=== PATIENT | female | born 1990 | race Caucasian/White ===

== ENCOUNTER → 2017-08-29 | Outpatient (CLI) | payer OTHER | END | disposition home or self-care (01) | LOC: ECHO 09:58 | DX: I08.2 Rheumatic disorders of both aortic and tricuspid valves (principal) | CPT/HCPCS: 93306 ==

== ENCOUNTER 2017-11-04 10:56 | Day surgery (SDC) | payer OTHER ==
[~2017-11-04 10:56] MED LIST: IV RINGERS,LACTATED 1000ML 1,000 ML IV; LIDOCAINE 1% PF 2 ML VIAL. ID; MORPHINE SULFATE 2 MG/ML DISP.SYRIN. IV; ONDANSETRON PF 4 MG/2 ML VIAL. IV; PROCHLORPERAZINE 10 MG/2 ML VIAL. IV; fentaNYL PF VIAL 100 MCG/2 ML VIAL IV
[2017-11-04] MEDS ORDERED: IODIXANOL 320 MG/ML 100 ML VIAL. (10:58)
[2017-11-04] MEDS ORDERED: LIDOCAINE 1% PF 30 ML VIAL. ×2 (10:58→13:04)
[2017-11-04 11:25] LABS: HEMATOCRIT 36.6 % (36.0-47.0); MEAN CORPUSCULAR HEMOGLOBIN 25 pg (25-35); MEAN CORPUSCULAR HGB CONC 33 g/dL (31-37); MEAN CORPUSCULAR VOLUME 76 fL (79-100); PLATELET COUNT 300 x10^3/uL (140-400); RED BLOOD COUNT 4.85 x10^6/uL (3.50-5.40); RED CELL DISTRIBUTION WIDTH 18.3 % (11.5-14.5); WHITE BLOOD COUNT 5.3 x10^3/uL (4.0-11.0)
[2017-11-04 11:29] LABS: ANION GAP 10 (6-14); BLOOD UREA NITROGEN 14 mg/dL (7-20); CALCIUM 9.1 mg/dL (8.5-10.1); CARBON DIOXIDE 27 mmol/L (21-32); CHLORIDE 102 mmol/L (98-107); GFR 66.5; GLUCOSE 93 mg/dL (70-99); POTASSIUM 4.4 mmol/L (3.5-5.1); SODIUM 139 mmol/L (136-145)
[2017-11-04 11:41] LABS: INR 1.1 (0.8-1.1); PARTIAL THROMBOPLASTIN TIME 30 SEC (24-38); PROTHROMBIN TIME PATIENT 13.2 SEC (11.7-14.0)
[2017-11-04] MEDS ORDERED: PROPOFOL 0 ML IV ×2 (11:51)
[2017-11-04] MEDS ORDERED: PROPOFOL 20 ML IV (11:51)
[2017-11-04 12:07] LABS: NEG OBC SER NEG; POS OBC SER POS; PREG TEST PT QUAL NEGATIVE (NEG)
[2017-11-04] MEDS: IODIXANOL 320 MG/ML 100 ML VIAL. IART (12:30)
[2017-11-04] MEDS: fentaNYL PF VIAL 100 MCG/2 ML VIAL IV ×3 (12:30→14:24)
[2017-11-04] MEDS: LIDOCAINE 1% PF 2 ML VIAL. INJ (12:30)
[2017-11-04] MEDS: MIDAZOLAM HCL/PF 2 MG/2 ML VIAL. IV (12:30)
[2017-11-04] MEDS ORDERED: fentaNYL PF VIAL 100 MCG/2 ML VIAL (12:32)
[2017-11-04] MEDS ORDERED: MIDAZOLAM HCL/PF 2 MG/2 ML VIAL. (12:32)
[2017-11-04] MEDS ORDERED: CONTRAST GIVEN. MC (12:45)
[2017-11-04] MEDS ORDERED: IV RINGERS,LACTATED 1000ML 1,000 ML IV (13:29)
[2017-11-04] MEDS ORDERED: LIDOCAINE 1% PF 2 ML VIAL. ID (13:30)
[2017-11-04] MEDS ORDERED: MORPHINE SULFATE 2 MG/ML DISP.SYRIN. IV (13:30)
[2017-11-04] MEDS ORDERED: ONDANSETRON PF 4 MG/2 ML VIAL. IV (13:30)
[2017-11-04] MEDS ORDERED: PROCHLORPERAZINE 10 MG/2 ML VIAL. IV (13:30)
[2017-11-04] MEDS ORDERED: fentaNYL PF VIAL 100 MCG/2 ML VIAL IV (13:30)
== END 2017-11-04 16:15 | disposition home or self-care (01) ==
LOC: SURG 10:56
DX: I34.0 Nonrheumatic mitral (valve) insufficiency (principal); I42.9 Cardiomyopathy, unspecified; Z88.1 Allergy status to other antibiotic agents; Z91.040 Latex allergy status; I10 Essential (primary) hypertension; J45.909 Unspecified asthma, uncomplicated; F90.9 Attention-deficit hyperactivity disorder, unspecified type; F43.10 Post-traumatic stress disorder, unspecified; F31.9 Bipolar disorder, unspecified; F41.9 Anxiety disorder, unspecified; Z72.89 Other problems related to lifestyle; F17.200 Nicotine dependence, unspecified, uncomplicated; Z79.899 Other long term (current) drug therapy; Z79.01 Long term (current) use of anticoagulants
CPT/HCPCS: 36415; 76376; 80048; 84703; 85027; 85610; 85730; 93312; 93320; 93325; 93460; 99152; 99153; C1769; C1771; C1773; C1892; G0269; J1644; J2250; J2704; J3010

== ENCOUNTER 2017-11-05 20:28 | Observation (INO) | payer OTHER ==
[2017-11-05] MEDS ORDERED: MORPHINE SULFATE 4 MG/ML DISP.SYRIN. IV (21:15)
[2017-11-05] MEDS: IV NORMAL SALINE 1000ML BAG 1,000 ML IV (21:48)
[2017-11-05] MEDS: LABETALOL HCL 100 MG TABLET. PO (21:49)
[2017-11-05] MEDS: MORPHINE SULFATE 2 MG/ML DISP.SYRIN. IV (21:49)
[2017-11-05 22:20] LABS: ADD MAN DIFF? NO
[2017-11-05 22:39] LABS: ALBUMIN 3.8 g/dL (3.4-5.0); ALBUMIN/GLOBULIN RATIO 0.9 (1.0-1.7); ALK PHOS 110 U/L (46-116); ALT (SGPT) 140 U/L (14-59); ANION GAP 7 (6-14); AST (SGOT) 62 U/L (15-37); BLOOD UREA NITROGEN 13 mg/dL (7-20); BUN/CREATININE RATIO 13 (6-20); CARBON DIOXIDE 27 mmol/L (21-32); CHLORIDE 102 mmol/L (98-107); GFR 66.5; GLUCOSE 93 mg/dL (70-99); POTASSIUM 4.5 mmol/L (3.5-5.1); SODIUM 136 mmol/L (136-145); TOTAL BILIRUBIN 0.9 mg/dL (0.2-1.0); TOTAL PROTEIN 7.9 g/dL (6.4-8.2)
[2017-11-05 23:09] LABS: BASO % 0 % (0-3); EOS # 0.2 x10^3/uL (0.0-0.7); EOS % 2 % (0-3); HEMATOCRIT 35.2 % (36.0-47.0); HEMOGLOBIN 11.4 g/dL (12.0-15.5); LYMPH # 1.7 x10^3/uL (1.0-4.8); LYMPH % 20 % (24-48); MEAN CORPUSCULAR HEMOGLOBIN 25 pg (25-35); MEAN CORPUSCULAR HGB CONC 32 g/dL (31-37); MEAN CORPUSCULAR VOLUME 77 fL (79-100); MONO # 0.6 x10^3/uL (0.0-1.1); MONO % 7 % (0-9); NEUT # 6.3 x10^3uL (1.8-7.7); NEUT % 71 % (31-73); PLATELET COUNT 294 x10^3/uL (140-400); RED BLOOD COUNT 4.58 x10^6/uL (3.50-5.40); RED CELL DISTRIBUTION WIDTH 18.4 % (11.5-14.5); WHITE BLOOD COUNT 8.8 x10^3/uL (4.0-11.0)
[2017-11-06 07:32] LABS: ADD MAN DIFF? NO
[2017-11-06 07:34] LABS: BASO % 1 % (0-3); EOS # 0.2 x10^3/uL (0.0-0.7); EOS % 3 % (0-3); HEMATOCRIT 32.2 % (36.0-47.0); HEMOGLOBIN 10.7 g/dL (12.0-15.5); LYMPH # 2.2 x10^3/uL (1.0-4.8); LYMPH % 29 % (24-48); MEAN CORPUSCULAR HEMOGLOBIN 25 pg (25-35); MEAN CORPUSCULAR HGB CONC 33 g/dL (31-37); MEAN CORPUSCULAR VOLUME 76 fL (79-100); MONO # 0.6 x10^3/uL (0.0-1.1); MONO % 8 % (0-9); NEUT # 4.6 x10^3uL (1.8-7.7); NEUT % 60 % (31-73); PLATELET COUNT 279 x10^3/uL (140-400); RED BLOOD COUNT 4.26 x10^6/uL (3.50-5.40); RED CELL DISTRIBUTION WIDTH 18.3 % (11.5-14.5); WHITE BLOOD COUNT 7.7 x10^3/uL (4.0-11.0)
[2017-11-06] MEDS: MORPHINE SULFATE 2 MG/ML DISP.SYRIN. IV (07:43)
[2017-11-06] MEDS: ONDANSETRON PF 4 MG/2 ML VIAL. IV (07:43)
[2017-11-06 07:44] LABS: ANION GAP 9 (6-14); BLOOD UREA NITROGEN 13 mg/dL (7-20); CALCIUM 8.8 mg/dL (8.5-10.1); CARBON DIOXIDE 24 mmol/L (21-32); CHLORIDE 103 mmol/L (98-107); GFR 66.5; GLUCOSE 91 mg/dL (70-99); POTASSIUM 4.4 mmol/L (3.5-5.1); SODIUM 136 mmol/L (136-145)
[2017-11-06] MEDS: IV NORMAL SALINE 1000ML BAG 1,000 ML IV (08:39)
[2017-11-06] MEDS: LABETALOL HCL 100 MG TABLET. PO ×2 (08:39→20:28)
[2017-11-06 13:04] LABS: HEMOGLOBIN 10.1 g/dL (12.0-15.5)
[2017-11-06] MEDS: ACETAMINOPHEN 325 MG TABLET. PO (22:32)
[2017-11-07 05:02] LABS: ADD MAN DIFF? NO
[2017-11-07 05:09] LABS: BASO % 1 % (0-3); EOS # 0.2 x10^3/uL (0.0-0.7); EOS % 4 % (0-3); HEMATOCRIT 30.7 % (36.0-47.0); HEMOGLOBIN 10.3 g/dL (12.0-15.5); LYMPH # 2.1 x10^3/uL (1.0-4.8); LYMPH % 35 % (24-48); MEAN CORPUSCULAR HEMOGLOBIN 26 pg (25-35); MEAN CORPUSCULAR HGB CONC 34 g/dL (31-37); MEAN CORPUSCULAR VOLUME 76 fL (79-100); MONO # 0.5 x10^3/uL (0.0-1.1); MONO % 9 % (0-9); NEUT # 3.1 x10^3uL (1.8-7.7); NEUT % 52 % (31-73); PLATELET COUNT 246 x10^3/uL (140-400); RED BLOOD COUNT 4.04 x10^6/uL (3.50-5.40); RED CELL DISTRIBUTION WIDTH 18.3 % (11.5-14.5)
[2017-11-07 05:26] LABS: ANION GAP 9 (6-14); BLOOD UREA NITROGEN 9 mg/dL (7-20); CALCIUM 8.6 mg/dL (8.5-10.1); CARBON DIOXIDE 25 mmol/L (21-32); CHLORIDE 104 mmol/L (98-107); CREATININE 0.9 mg/dL (0.6-1.0); GFR 75.1; GLUCOSE 93 mg/dL (70-99); SODIUM 138 mmol/L (136-145)
[2017-11-07] MEDS: LABETALOL HCL 100 MG TABLET. PO (09:00)
== END 2017-11-07 15:14 | disposition home or self-care (01) ==
LOC: 2 NORTH 20:28
DX: K66.1 Hemoperitoneum (principal); F32.9 Major depressive disorder, single episode, unspecified; F90.9 Attention-deficit hyperactivity disorder, unspecified type; F41.9 Anxiety disorder, unspecified; D62 Acute posthemorrhagic anemia; E24.9 Cushing's syndrome, unspecified; F17.210 Nicotine dependence, cigarettes, uncomplicated; I10 Essential (primary) hypertension; O90.3 Peripartum cardiomyopathy; Z83.3 Family history of diabetes mellitus; Z86.2 Personal history of diseases of the blood and blood-forming organs and certain disorders involving the immune mechanism
CPT/HCPCS: 36415; 74176; 80048; 80053; 85018; 85025; 93005; 93926; 96361; 96374; 96375; 96376; G0378; G0379; J2270; J2405; J7030

== ENCOUNTER 2017-11-10 18:15 | Emergency (ER) | payer OTHER ==
[~2017-11-10] VITALS: Ht 170.2 cm; Wt 88.0 kg
[~2017-11-10 18:15] MED LIST changes: -IV RINGERS,LACTATED 1000ML 1,000 ML IV; +LABE100T5 PO; -LIDOCAINE 1% PF 2 ML VIAL. ID; -MORPHINE SULFATE 2 MG/ML DISP.SYRIN. IV; -ONDANSETRON PF 4 MG/2 ML VIAL. IV; +PROAIR HFA8.5 GM INH; -PROCHLORPERAZINE 10 MG/2 ML VIAL. IV; -fentaNYL PF VIAL 100 MCG/2 ML VIAL IV
[2017-11-10] MEDS ORDERED: IV NORMAL SALINE 1000ML BAG 1,000 ML IV SCH (19:16)
[2017-11-10] MEDS ORDERED: fentaNYL PF VIAL 100 MCG/2 ML VIAL IV ONE (19:30)
[2017-11-10] MEDS ORDERED: ONDANSETRON PF 4 MG/2 ML VIAL. IV ONE (19:30)
[2017-11-10 19:33] LABS: BILIRUBIN,URINE NEGATIVE (NEG); CLARITY,URINE CLEAR; COLOR,URINE YELLOW; NITRITE,URINE NEGATIVE (NEG); PROTEIN,URINE NEGATIVE (NEG-TRACE)
[2017-11-10 19:40] LABS: BACTERIA,URINE MANY /HPF (0-FEW); RBC,URINE 0 /HPF (0-2); SQUAMOUS EPITHELIAL CELL,UR MANY /LPF
[2017-11-10 19:42] LABS: BASO # 0.1 x10^3/uL (0.0-0.2); BASO % 1 % (0-3); EOS # 0.1 x10^3/uL (0.0-0.7); EOS % 1 % (0-3); HEMATOCRIT 35.1 % (36.0-47.0); LYMPH # 2.1 x10^3/uL (1.0-4.8); LYMPH % 19 % (24-48); MEAN CORPUSCULAR HEMOGLOBIN 26 pg (25-35); MEAN CORPUSCULAR HGB CONC 34 g/dL (31-37); MEAN CORPUSCULAR VOLUME 75 fL (79-100); MONO # 0.8 x10^3/uL (0.0-1.1); MONO % 7 % (0-9); NEUT # 7.8 x10^3uL (1.8-7.7); NEUT % 72 % (31-73); PLATELET COUNT 351 x10^3/uL (140-400); RED BLOOD COUNT 4.67 x10^6/uL (3.50-5.40); RED CELL DISTRIBUTION WIDTH 18.6 % (11.5-14.5); WHITE BLOOD COUNT 10.8 x10^3/uL (4.0-11.0)
[2017-11-10 19:55] LABS: CALCIUM 9.5 mg/dL (8.5-10.1); CREATININE 1.1 mg/dL (0.6-1.0); GFR 59.6
[2017-11-10 19:59] LABS: ALBUMIN/GLOBULIN RATIO 0.9 (1.0-1.7); TOTAL BILIRUBIN 1.2 mg/dL (0.2-1.0); TOTAL PROTEIN 8.4 g/dL (6.4-8.2)
[2017-11-10] MEDS ORDERED: CONTRAST GIVEN. MC PRN (20:45)
[2017-11-10] MEDS ORDERED: IOHEXOL 300 MG/ML 100ML VIAL. IV ONE (20:45)
--- NOTE | 2017-11-10 22:05 | RAD ---
CT abdomen and pelvis with contrast: Reason for examination: Right lower quadrant abdominal pain and groin pain. History of catheterization. Comparison is made to previous study dated 11/07/2017. Helical images were obtained through the abdomen and pelvis with intravenous administration of 60 cc Omnipaque 300. Reconstruction was performed in sagittal and coronal planes. Exposure: One or more of the following individualized dose reduction techniques were utilized for this examination: 1. Automated exposure control 2. Adjustment of the mA and/or kV according to patient size 3. Use of iterative reconstruction technique. The lung bases are clear. The heart size is normal with no pericardial effusion. No focal abnormality seen at the liver, spleen, gallbladder, pancreas or adrenal glands. The kidneys show no renal masses, renal calculi, hydronephrosis or evidence of obstructive uropathy. The abdominal aorta and inferior vena cava show no acute abnormalities. There is however continued presence of soft tissue edema and fluid present extending from the right groin into the right lateral pelvis along the course of the external iliac artery and common femoral artery this is probably slightly more prominent than on previous examination and would be consistent with probable hematoma. The intestinal tract shows no abnormally dilated loops of bowel or thickened bowel vergara. There is no evidence of diverticulosis or diverticulitis. No abnormality seen at the bladder. No uterine or adnexal masses are evident. IMPRESSION: Soft tissue edema and fluid extending from the right groin around the common femoral artery into the lateral right pelvis around the external iliac artery. Appearance is consistent with hematoma. This is slightly more prominent than on previous examination. No other focal abnormality seen in the abdomen or pelvis. Electronically signed by: Sherron Roche MD (11/10/2017 10:01 PM) [facility]
--- NOTE | 2017-11-10 22:10 | RAD ---
Ultrasound arterial study lower extremity right: Reason for examination: Right groin pain status post catheterization. Severe groin pain radiating down right leg post cardiac catheterization. The right lower extremity arterial system was evaluated from the common femoral artery distally to the popliteal artery and the right common femoral vein and greater saphenous vein were evaluated with grayscale imaging, color-flow imaging and spectral analysis. The right common femoral vein and greater saphenous vein show normal blood flow and normal compression. No venous thrombosis is seen. The right lower extremity arterial system showed triphasic waveform from the common femoral artery to the popliteal artery. No stenosis or occlusion is seen. No pseudoaneurysm is seen. Normal appearing lymph nodes are seen at the right groin. There is right groin edema present. IMPRESSION: No thrombus in the common femoral or greater saphenous veins. Normal triphasic waveform from the right common femoral artery to the popliteal artery. No evidence of pseudoaneurysm. Edema in the right groin. Electronically signed by: Sherron Roche MD (11/10/2017 10:06 PM) [facility]
--- NOTE | 2017-11-10 22:49 | PHYS DOC ---
Past Medical History Past Medical History: Anxiety, Depression, Other Additional Past Medical Histor: CARDIOMYOPATHY, PTSD, ADHD Past Surgical History: Other Additional Past Surgical Histo: CARDIAC CATH, LEEP, D&C Alcohol Use: Rarely Drug Use: None Adult General Chief Complaint Chief Complaint: ABDOMINAL PAIN HPI HPI Patient is a 26-year-old female who presents with complaint of right lower abdominal/groin pain. Patient had been admitted a week ago for cardiac catheterization and after discharge, she had developed pain and significant bruising to the groin and so had been readmitted into the hospital the next day for a hematoma in her groin. Patient states that she was discharged home on and pain has been fairly well controlled at home but today she again developed pain in her groin and the pain extends up into her right lower abdomen. She indicates that she has had poor appetite over the last few days. She denies any fever. She states that she has had some nausea and vomiting. She denies diarrhea. She rates her pain at a 7 out of 10 currently. Review of Systems Review of Systems Constitutional: Denies fever or chills [] Respiratory: Denies cough or shortness of breath [] Cardiovascular: Denies chest pain[] GI: Complains of right lower abdominal pain and groin pain as well as nausea and vomiting[] : Denies dysuria or hematuria [] Musculoskeletal: Denies back pain or joint pain [] Integument: Complains of bruising to the right groin[] All other systems were reviewed and found to be within normal limits, except as documented in this note. Current Medications Current Medications Current Medications Medications (Trade) Dose Ordered Sig/Casei Start Time Stop Time Status Last Admin Dose Admin Fentanyl Citrate (Fentanyl 2ml Vial) 50 mcg 1X ONCE 11/10/17 19:30 11/10/17 19:31 DC 11/10/17 19:50 50 MCG Info (CONTRAST GIVEN -- Rx MONITORING) 1 each PRN DAILY PRN 11/10/17 20:45 11/12/17 20:44 Iohexol (Omnipaque 300 Mg/ml) 60 ml 1X ONCE 11/10/17 20:45 11/10/17 20:46 DC 11/10/17 21:00 60 ML Ondansetron HCl (Zofran) 4 mg 1X ONCE 11/10/17 19:30 11/10/17 19:31 DC 11/10/17 19:49 4 MG Sodium Chloride 1,000 ml @ 100 mls/hr Q10H 11/10/17 19:16 11/11/17 05:15 11/10/17 19:49 100 MLS/HR Allergies Allergies Allergies Coded Allergies Type Severity Reaction Last Updated Verified amoxicillin Allergy Intermediate Nausea and Vomiting 11/04/17 Yes latex Allergy Intermediate Itching 11/06/17 Yes Physical Exam Physical Exam Constitutional: Well developed, well nourished, no acute distress, non-toxic appearance. [] HENT: Normocephalic, atraumatic, bilateral external ears normal, oropharynx moist, no oral exudates, nose normal. [] Eyes: PERRLA, EOMI, conjunctiva normal, no discharge. [] Neck: Normal range of motion, no tenderness, supple, no stridor. [] Cardiovascular:Heart rate regular rhythm, no murmur [] Lungs & Thorax: Bilateral breath sounds clear to auscultation [] Abdomen: Bowel sounds normal, soft, no tenderness, no masses, no pulsatile masses. [] Skin: Warm, dry, no erythema, no rash. [] Back: No tenderness, no CVA tenderness. [] Extremities: No tenderness, no cyanosis, no clubbing, ROM intact, no edema. [] Neurologic: Alert and oriented X 3, normal motor function, normal sensory function, no focal deficits noted. [] Psychologic: Affect normal, judgement normal, mood normal. [] Current Patient Data Vital Signs Vital Signs Date Time Temp Pulse Resp B/P (MAP) Pulse Ox O2 Delivery O2 Flow Rate FiO2 11/10/17 19:50 20 99 11/10/17 18:53 99.3 100 140/83 (102) Room Air 99.3 Lab Values Laboratory Tests Test 11/10/17 18:53 11/10/17 19:04 11/10/17 19:30 Urine Collection Type Void Urine Color Yellow Urine Clarity Clear Urine pH 6.0 Urine Specific [place] 1.020 Urine Protein Negative mg/dL (NEG-TRACE) Urine Glucose (UA) Negative mg/dL (NEG) Urine Ketones (Stick) Negative mg/dL (NEG) Urine Blood Negative (NEG) Urine Nitrite Negative (NEG) Urine Bilirubin Negative (NEG) Urine Urobilinogen Dipstick 1.0 mg/dL (0.2 mg/dL) Urine Leukocyte Esterase Trace (NEG) Urine RBC 0 /HPF (0-2) Urine WBC 1-4 /HPF (0-4) Urine Squamous Epithelial Cells Many /LPF Urine Bacteria Many /HPF (0-FEW) Urine Mucus Mod /LPF POC Urine HCG, Qualitative Hcg negative (Negative) White Blood Count 10.8 x10^3/uL (4.0-11.0) Red Blood Count 4.67 x10^6/uL (3.50-5.40) Hemoglobin 12.0 g/dL (12.0-15.5) Hematocrit 35.1 % (36.0-47.0) L Mean Corpuscular Volume 75 fL (79-100) L Mean Corpuscular Hemoglobin 26 pg (25-35) Mean Corpuscular Hemoglobin Concent 34 g/dL (31-37) Red Cell Distribution Width 18.6 % (11.5-14.5) H Platelet Count 351 x10^3/uL (140-400) Neutrophils (%) (Auto) 72 % (31-73) Lymphocytes (%) (Auto) 19 % (24-48) L Monocytes (%) (Auto) 7 % (0-9) Eosinophils (%) (Auto) 1 % (0-3) Basophils (%) (Auto) 1 % (0-3) Neutrophils # (Auto) 7.8 x10^3uL (1.8-7.7) H Lymphocytes # (Auto) 2.1 x10^3/uL (1.0-4.8) Monocytes # (Auto) 0.8 x10^3/uL (0.0-1.1) Eosinophils # (Auto) 0.1 x10^3/uL (0.0-0.7) Basophils # (Auto) 0.1 x10^3/uL (0.0-0.2) Sodium Level 134 mmol/L (136-145) L Potassium Level 4.0 mmol/L (3.5-5.1) Chloride Level 99 mmol/L (98-107) Carbon Dioxide Level 25 mmol/L (21-32) Anion Gap 10 (6-14) Blood Urea Nitrogen 14 mg/dL (7-20) Creatinine 1.1 mg/dL (0.6-1.0) H Estimated GFR (Cockcroft-Gault) 59.6 BUN/Creatinine Ratio 13 (6-20) Glucose Level 83 mg/dL (70-99) Calcium Level 9.5 mg/dL (8.5-10.1) Total Bilirubin 1.2 mg/dL (0.2-1.0) H Aspartate Amino Transferase (AST) 75 U/L (15-37) H Alanine Aminotransferase (ALT) 167 U/L (14-59) H Alkaline Phosphatase 170 U/L (46-116) H Total Protein 8.4 g/dL (6.4-8.2) H Albumin 4.0 g/dL (3.4-5.0) Albumin/Globulin Ratio 0.9 (1.0-1.7) L Laboratory Tests 11/10/17 19:30 Laboratory Tests 11/10/17 19:30 EKG EKG [] Radiology/Procedures Radiology/Procedures [] Impressions: CT of the abdomen and pelvis redemonstrates findings consistent with hematoma which is slightly more prominent than previous exam from 3 days ago. An arterial ultrasound of the right leg demonstrates no acute findings. Course & Med Decision Making Course & Med Decision Making Pertinent Labs and Imaging studies reviewed. (See chart for details) Findings of workup were reviewed with Dr. Peguero and he indicates that if patient's pain is not well managed at home that patient may be admitted for pain management. This plan was reviewed with patient and her family. Patient states that she does not believe that she has someone who can watch her children so that she can be hospitalized. Patient indicates that she would prefer discharge home. Findings of workup are stable and hemoglobin is actually risen a little bit. I do feel the patient may be safely discharged at this time. Dragon Disclaimer Dragon Disclaimer This electronic medical record was generated, in whole or in part, using a voice recognition dictation system. Departure Departure Impression: Primary Impression: Hematoma Disposition: 01 HOME, SELF-CARE Condition: STABLE Referrals: RADHA ADAMES DO (PCP) MORE PEGUERO MD Patient Instructions: Hematoma Additional Instructions: Call to schedule appointment with Dr. Peguero's office tomorrow morning. SUDHA SWEENEY Jr., DO Nov 10, 2017 22:49
[2017-11-10 23:21] VITALS: BP 125/76
[2017-11-11] MEDS ORDERED: IOHEXOL 300 MG/ML 100ML VIAL. ONE (02:05)
--- NOTE | 2017-11-11 06:27 | EKG ---
[facility] [address] [place] [address] Test Date: 2017-11-10 Test Time: 19:41:51 Pat Name: PATTI JOHNSTON Department: Room: Gender: F [employer]: : 1990 Requested By: SUDHA SWEENEY Order Number: [id number] Reading MD: Artur Stearns MD Measurements Intervals [place] Rate: 94 P: 22 IN: 142 QRS: 8 QRSD: 82 T: 112 QT: 342 QTc: 432 Interpretive Statements SINUS RHYTHM NON-SPECIFIC ST/T CHANGES Electronically Signed On 11-18-2017 10:28:54 CDT by Artur Stearns MD
== END 2017-11-10 23:27 | disposition home or self-care (01) ==
LOC: ER 18:15
DX: S30.1XXA Contusion of abdominal wall, initial encounter (principal); R11.2 Nausea with vomiting, unspecified; F43.10 Post-traumatic stress disorder, unspecified; F90.9 Attention-deficit hyperactivity disorder, unspecified type; Z95.5 Presence of coronary angioplasty implant and graft; Z88.1 Allergy status to other antibiotic agents; Z91.040 Latex allergy status; X58.XXXA Exposure to other specified factors, initial encounter; Y93.89 Activity, other specified; Y92.89 Other specified places as the place of occurrence of the external cause; Y99.8 Other external cause status
CPT/HCPCS: 36415; 74177; 80053; 81001; 81025; 85025; 87086; 93005; 93923; 96361; 96374; 96375; 99285; J2405; J3010; J7030; Q9967

== ENCOUNTER 2019-09-05 14:42 | Emergency (ER) | payer OTHER ==
[~2019-09-05] VITALS: Ht 170.2 cm; Wt 81.2 kg
[~2019-09-05 14:42] MED LIST changes: +ALBU2.5V8 INH; -PROAIR HFA8.5 GM INH
[2019-09-05 15:28] VITALS: BP 113/69
--- NOTE | 2019-09-05 15:43 | RAD ---
Bilateral lower extremity venous Doppler ultrasound History: LEGS SWELLING Comparison: None. Procedure: Color flow Doppler, Doppler spectral analysis, and 2D images are obtained with and without compression in the area of the common femoral vein, superficial femoral vein - femoral vein junction, main femoral vein (superficial femoral vein) and popliteal vein. Veins of the proximal calf are also imaged. Findings: There is normal color flow, augmentation, and compressibility of all visualized vein segments. No evidence of deep venous thrombus is present. IMPRESSION: No evidence of right or left lower extremity deep venous thrombosis. Electronically signed by: Benjie Munoz MD (09/05/2019 3:40 PM) [facility]
--- NOTE | 2019-09-05 16:10 | RAD ---
Exam: Chest one view INDICATION: Short of air TECHNIQUE: Frontal view of the chest Comparisons: None FINDINGS: The cardiomediastinal silhouette and pulmonary vessels are within normal limits. The lung and pleural spaces are clear. IMPRESSION: No acute cardiopulmonary process. Electronically signed by: Zander Estrada MD (09/05/2019 4:07 PM) [id number]
--- NOTE | 2019-09-05 16:47 | PHYS DOC ---
Past Medical History Past Medical History: Anxiety, Asthma, Bipolar, Depression, Other Additional Past Medical Histor: CARDIOMYOPATHY, PTSD, ADHD Past Surgical History: Other Additional Past Surgical Histo: CARDIAC CATH, LEEP, D&C Smoking Status: Current Every Day Smoker Alcohol Use: Occasionally Drug Use: None General Adult EDM: Chief Complaint: LOWER EXTREMITY SWELLING HPI: HPI: Patient is a 28 year old female who presented to ER today for evaluation of bilateral lower extremity swelling off and on for several days, she also has intermittent shortness of air, no cough, no fever. Patient denies any chest pain. Patient denies any recent travel or operation, denies any abdominal pain. Patient denies any history of blood clot disorder, she is not on control medication she is a smoker however. In July 2017, patient was diagnosed with cardiomyopathy, and echo showed that she had EF of 40%. She has been seen by the funeral home makeup artist since then she has been actually doing okay. Patient noticed some swelling in her leg yesterday, today it actually improved however she was not sure how to handle it so she came here for evaluation. Review of Systems: Review of Systems: Constitutional: Denies fever or chills. [] Eyes: Denies change in visual acuity. [] HENT: Denies nasal congestion or sore throat. [] Respiratory: Denies cough, positive for shortness of breath. [] Cardiovascular: Denies chest pain or edema. [] GI: Denies abdominal pain, nausea, vomiting, bloody stools or diarrhea. [] : Denies dysuria. [] Musculoskeletal: Denies back pain or joint pain. [] Integument: Denies rash. [] Neurologic: Denies headache, focal weakness or sensory changes. [] Endocrine: Denies polyuria or polydipsia. [] Lymphatic: Denies swollen glands. [] Psychiatric: Denies depression or anxiety. [] Heart Score: Risk Factors: Risk Factors: DM, Current or recent (<one month) smoker, HTN, HLP, family history of CAD, obesity. Risk Scores: Score 0 - 3: 2.5% MACE over next 6 weeks - Discharge Home Score 4 - 6: 20.3% MACE over next 6 weeks - Admit for Clinical Observation Score 7 - 10: 72.7% MACE over next 6 weeks - Early Invasive Strategies Allergies: Allergies: Allergies Coded Allergies Type Severity Reaction Last Updated Verified amoxicillin Allergy Intermediate Nausea and Vomiting 11/04/17 Yes latex Allergy Intermediate Itching 11/06/17 Yes Physical Exam: PE: Constitutional: Well developed, well nourished, no acute distress, non-toxic appearance. [] HENT: Normocephalic, atraumatic, bilateral external ears normal, oropharynx moist, no oral exudates, nose normal. [] Eyes: PERRLA, EOMI, conjunctiva normal, no discharge. [] Neck: Normal range of motion, no tenderness, supple, no stridor. [] Cardiovascular:Heart rate regular rhythm, no murmur [] Lungs & Thorax: Bilateral breath sounds clear to auscultation [] Abdomen: Bowel sounds normal, soft, no tenderness, no masses, no pulsatile masses. [] Skin: Warm, dry, no erythema, no rash. [] Back: No tenderness, no CVA tenderness. [] Extremities: No tenderness, no cyanosis, no clubbing, ROM intact, no edema. [] NO PITTING EDEMA. MILD SWELLING OF BOTH LEGS. NO CALF TENDERNESS. Neurologic: Alert and oriented X 3, normal motor function, normal sensory function, no focal deficits noted. [] Psychologic: Affect normal, judgement normal, mood normal. [] Current Patient Data: Labs: Laboratory Tests Test 09/05/19 15:04 POC Urine HCG, Qualitative Hcg negative (Negative) Vital Signs: Vital Signs Date Time Temp Pulse Resp B/P (MAP) Pulse Ox O2 Delivery O2 Flow Rate FiO2 09/05/19 14:51 98.5 110 16 140/89 (106) 96 Room Air 98.5 EKG: EKG: [] Radiology/Procedures: Radiology/Procedures: [][facility] [address] [place], [place] [id number] IMAGING REPORT Signed PATIENT: PATTI MORRIS ACCOUNT: [id number] : 1990 LOCATION: ER AGE: 28 SEX: F EXAM STATUS: PRE ER ORD. PHYSICIAN: EDUAR ANDREWS DO REASON: LEGS SWELLING PROCEDURE: VENOUS LOWER EXT BILATERAL Bilateral lower extremity venous Doppler ultrasound History: LEGS SWELLING Comparison: None. Procedure: Color flow Doppler, Doppler spectral analysis, and 2D images are obtained with and without compression in the area of the common femoral vein, superficial femoral vein - femoral vein junction, main femoral vein (superficial femoral vein) and popliteal vein. Veins of the proximal calf are also imaged. Findings: There is normal color flow, augmentation, and compressibility of all visualized vein segments. No evidence of deep venous thrombus is present. IMPRESSION: No evidence of right or left lower extremity deep venous thrombosis. Electronically signed by: Benjie Munoz MD (09/05/2019 3:40 PM) [facility] DICTATED and SIGNED BY: BENJIE MUNOZ MD DATE: 09/05/19 1540 [facility] [address] [place], [place] [id number] IMAGING REPORT Signed PATIENT: PATTI MORRIS ACCOUNT: [id number] : 1990 LOCATION: ER AGE: 28 SEX: F EXAM STATUS: PRE ER ORD. PHYSICIAN: EDUAR ANDREWS DO REASON: SOA PROCEDURE: CHEST AP ONLY Exam: Chest one view INDICATION: Short of air TECHNIQUE: Frontal view of the chest Comparisons: None FINDINGS: The cardiomediastinal silhouette and pulmonary vessels are within normal limits. The lung and pleural spaces are clear. IMPRESSION: No acute cardiopulmonary process. Electronically signed by: Zander Cody MD (09/05/2019 4:07 PM) [id number] DICTATED and SIGNED BY: ZANDER CODY MD DATE: 09/05/19 1607 Course & Med Decision Making: Course & Med Decision Making Pertinent Labs and Imaging studies reviewed. (See chart for details) Patient is a 27-year-old female with history of cardiomyopathy with echocardiogram done in 2018 with EF of 40%, she presented to ER today for evaluation of intermittent lower extremity swelling, the swelling actually improved, patient had intermittent shortness of air, but her oxygen saturation was 100% on room air in the ER. She was in no acute distress, her leg swelling actually improved she said. There was no pitting edema. Chest x-ray did not s how cardiomyopathy, ultrasound her leg did not show any blood clot disorder. There is no further diagnostic evaluation needed urgently in the ER at this time. Patient was advised to call her funeral home makeup artist Dr. Stearns for outpatient evaluation of her heart with an echocardiogram. Patient is amenable to plan of care. Patient did not have any chest pain so she declined to have an EKG done. [place] Disclaimer: Dragon Disclaimer: This electronic medical record was generated, in whole or in part, using a voice recognition dictation system. Departure Departure Impression: Primary Impression: Peripheral edema Disposition: HOME, SELF-CARE Condition: STABLE Referrals: NO PCP (PCP) GUNJAN STEARNS MD PLEASE CALL THIS EVENT SPECIALIST FOOD DEMONSTRATOR FOR OUTPATIENT ECHOCARDIOGRAM OF YOUR HEART NEXT WEEK Patient Instructions: Peripheral Edema Justicifation of Admission Dx: Justifications for Admission: Justification of Admission Dx: N/A EDUAR ANDREWS DO Sep 05, 2019 16:46
== END 2019-09-05 17:01 | disposition home or self-care (01) ==
LOC: ER 14:42
DX: R60.0 Localized edema (principal); R06.02 Shortness of breath; F41.9 Anxiety disorder, unspecified; F32.9 Major depressive disorder, single episode, unspecified; F17.200 Nicotine dependence, unspecified, uncomplicated; J45.909 Unspecified asthma, uncomplicated; Z98.890 Other specified postprocedural states; Z88.1 Allergy status to other antibiotic agents; Z91.040 Latex allergy status
CPT/HCPCS: 71045; 81025; 93970; 99284